=== PATIENT | female | born 1965 | race Caucasian/White ===

== ENCOUNTER 2016-06-05 12:49 | Outpatient (CLI) | payer BC | END 2016-06-05 12:50 | disposition home or self-care (01) | DX: E03.9 Hypothyroidism, unspecified (principal) ==

== ENCOUNTER 2017-05-20 08:59 | Outpatient (CLI) | payer BC | END 2017-05-20 09:00 | disposition home or self-care (01) | LOC: LAB.F 08:59 | PROVIDERS: ATTEND Nurse Practitioner Family | DX: E03.9 Hypothyroidism, unspecified (principal); Z13.6 Encounter for screening for cardiovascular disorders | CPT/HCPCS: 36415; 84443 ==

== ENCOUNTER 2018-02-18 09:23 | Outpatient (CLI) | payer BC ==
--- NOTE | 2018-02-21 09:20 | Mammography Report ---
Reason: Annual Screening Procedure Date: 02/18/2018 Accession Number: [id number] / [id number] Procedure: [facility] - Screening Mammo Dig Bilat CPT Code: FULL RESULT: EXAM: Screening Mammo Dig Bilat DATE: 02/18/2018 9:53 AM CLINICAL HISTORY: Screening encounter. History of late childbearing. TECHNIQUE: Bilateral CC, laterally exaggerated CC, MLO views were obtained. COMPARISON: 03/15/2015 and 03/08/2013. FINDINGS: The breasts demonstrate heterogeneously dense fibroglandular parenchyma bilaterally. There are coarse typically benign left breast calcifications. No suspicious masses, clustered microcalcifications, or regions of architectural distortion are identified. IMPRESSION: Benign findings RECOMMENDATION: Routine annual screening unless otherwise clinically indicated. BIRADS CATEGORY 2: Benign findings STANDARD QUALIFYING STATEMENTS: 1. This examination was not reviewed with the aid of Computer-Aided Detection (CAD). 2. A negative or benign imaging report should not preclude biopsy if clinically suspicious findings are present. 3. Dense breasts may obscure an underlying neoplasm. 4. This examination was reviewed without the aid of 3D breast imaging (tomosynthesis).
== END 2018-02-18 09:24 | disposition home or self-care (01) ==
LOC: DI 09:23
PROVIDERS: ATTEND Nurse Practitioner Family
DX: Z12.31 Encounter for screening mammogram for malignant neoplasm of breast (principal)
CPT/HCPCS: 77067

== ENCOUNTER 2018-05-23 09:59 | Emergency (ER) | payer BC, OTHER ==
[2018-05-23 10:19] VITALS: BP 124/81
--- NOTE | 2018-05-23 11:22 | XRAY Report ---
Reason: pain. Procedure Date: 05/23/2018 Accession Number: [id number] / [id number] Procedure: XR - Clavicle LT CPT Code: FULL RESULT: EXAM: LEFT CLAVICLE RADIOGRAPHY EXAM DATE: 05/23/2018 11:05 AM. CLINICAL HISTORY: Left sternoclavicular pain. COMPARISON: None. TECHNIQUE: 2 views. FINDINGS: Bones: Normal bone mineralization. No fracture or bone lesion. Joints: The acromioclavicular and sternoclavicular joints are normal. No subluxation. Soft Tissues: Normal. No soft tissue swelling. IMPRESSION: Normal left clavicle radiography. [facility]
--- NOTE | 2018-05-23 12:05 | ED Physician Documentation ---
History of Present Illness - Stated complaint Stated Complaint: LEFT SHOULDER PAIN - Chief complaint Chief Complaint: Ext Problem - History obtained from History obtained from: Patient - Additonal information Additional information: Patient is a previously healthy, right-handed 53-year-old female presenting with several days of left shoulder and clavicle pain after accidentally injuring herself while moving boxes. Patient reports that she was extending her left arm when she felt some discomfort, but no pop or sounds. Patient states there is some mild swelling over the mid clavicle, but pain is truly only present when lifting the arm forward in front of her or lifting the arm up next to her. Patient denies any other restriction in range of motion, strength, or sensation change to the left upper extremity. Patient also denies any other injuries. No other improving or worsening factors noted to her symptoms. Review of Systems Musculoskeletal: reports: Extremity pain Neurologic: denies: Numbness PD PAST MEDICAL HISTORY - Past Medical History Past Medical History: No - Past Surgical History Past Surgical History: No - Allergies Allergies/Adverse Reactions: Allergies Allergy/AdvReac Type Severity Reaction Status Date / Time Penicillins Allergy Rash Verified 05/23/18 10:19 PD ED PE NORMAL - General General: Alert and oriented X 3, No acute distress, Well developed/nourished - HEENT HEENT: Atraumatic - Cardiac Cardiac: Strong equal pulses (Cap refill brisk) - Respiratory Respiratory: No respiratory distress - Derm Derm: Normal color, Warm and dry, No rash - Extremities Extremities: No deformity, No tenderness to palpate, Other (No significant tenderness with palpation of left clavicle, although mild swelling over mid left clavicle.No evidence of AC joint separation or shoulder dislocation noted. No other palpable tenderness to left upper extremity, but restriction in range of motion in lifting of arm up in front of body and next to body.) - Neuro Neuro: Alert and oriented X 3, No motor deficit, No sensory deficit - Psych Psych: Normal mood, Normal affect Results - Vitals Vitals: Vital Signs - 24 hr 05/23/18 10:17 Temperature 36.2 C L Heart Rate 65 Respiratory 14 Rate Blood Pressure 124/81 H O2 Saturation 100 Oxygen O2 Source Room air PD MEDICAL DECISION MAKING - ED course Complexity details: reviewed results, considered differential, d/w patient ED course: Most concerning for rotator cuff injury. X-ray obtained and did not find evidence of AC separation or fracture. Externally, exam is extremely benign except for restrictions in range of motion. Not find evidence to indicate trauma or other pathology to remainder of left upper extremity. No signs of DVT or infectious process present and given traumatic mechanism, would find this highly unlikely. Feel the patient is safe to discharge home with follow-up, as well as discussed supportive cares and strict return precautions. Patient voiced understanding and is comfortable with discharge plan. Departure - Departure Disposition: 01 Home, Self Care Clinical Impression: Muscle strain Rotator cuff injury Qualifiers: Encounter type: initial encounter Laterality: left Qualified Code(s): S46.002A - Unspecified injury of muscle(s) and tendon(s) of the rotator cuff of left shoulder, initial encounter Instructions: ED Torn Rotator Cuff Follow-Up: Leann Gutierrez MD [Provider Admit Priv/Credential] - Within 3 Days Comments: Recommend using left shoulder gently and applying ice for swelling, as well as using ibuprofen/Tylenol as needed for pain relief. Also recommend mild stretching, physical therapy, massage. May follow-up with primary care physician orthopedic surgery next 2-3 days. Return to ED sooner if expands worsening symptoms or other concerns.
== END 2018-05-23 12:28 | disposition home or self-care (01) ==
LOC: ED 09:59
DX: S46.912A Strain of unspecified muscle, fascia and tendon at shoulder and upper arm level, left arm, initial encounter (principal); S46.002A Unspecified injury of muscle(s) and tendon(s) of the rotator cuff of left shoulder, initial encounter; X50.9XXA Other and unspecified overexertion or strenuous movements or postures, initial encounter
CPT/HCPCS: 99283

== ENCOUNTER 2018-08-18 12:26 | Day surgery (SDC) | payer OTHER ==
[2018-08-18 12:53] LABS: HCG UR QUAL NEGATIVE
[2018-08-18] MEDS ORDERED: LACTATED RINGERS 1,000 ML IV ONE (14:42)
--- NOTE | 2018-08-18 14:47 | SURGERY HX AND PHYSICAL(T) ---
Surgical History & Physical - PMH/PSH/Social Hx Does the pt have a hx of MRSA?: No Eyes, Ears, Nose, Throat: None Cardiovascular: None Respiratory: None Skin: None Endocrine/Autoimmune: HyPOthyroidism Gastrointestinal: Hemorrhoids Urinary: None Musculoskeletal: None Psychiatric: None - Home Meds and Allergies Home Medications: Levothyroxine [Synthroid] 25 mcg PO QDAC 08/18/18 Allergies/Adverse Reactions: Allergies Allergy/AdvReac Type Severity Reaction Status Date / Time Penicillins Allergy Rash Verified 05/23/18 10:19 - Vital Signs Heart Rate: 65 Blood Pressure: 105/74 Temperature: 36.6 C Respiratory Rate: 16 O2 Saturation: 98 Weight (kg): 74.8 kg Height: 1.7 m - Patient Review Patient Review: Problems were reviewed with the patient during this visit. Medications were reviewed with the patient during this visit. Allergies were reviewed this patient during this visit. Pertinent Tests Reviewed: All pertitent test for this patient were reviewed. - Assessment & Plan Assessment and Plan: MEHUL Coreas initially sent this very pleasant 53-year-old female to our office on July 13, 2018 for the exact same reasons. At that time the patient described her bowel movements as regular normal and she describes them the same way today. She denied nausea, vomiting, constipation, diarrhea, melena, hematochezia, hematemesis, abdominal pain, unexplained weight loss, or change in the color, character, or character of her stool and she denies them again today. On July 13 the patient denied any previous colon evaluation including barium enema sigmoidoscopy or colonoscopy and again she denies it today. Nothing is changed since July 13 2 today. There have been no new diagnoses. She is not on any new medications nor has she stopped any medications. She has not been hospitalized. Current Allergies: PENICILLIN V POTASSIUM (Severe) Current Meds: AZITHROMYCIN 250 MG ORAL TABLET (AZITHROMYCIN) two tablets by mouth today, one daily for the next 4 days; Route: ORAL LEVOTHYROXINE SODIUM 150 MCG ORAL TABLET (LEVOTHYROXINE SODIUM) Take one tablet by mouth daily; Route: ORAL Past Medical History: Hypothyroid Allergies Past Surgical History: Unremarkable Family History Summary: Family History of Thyroid Disorder for Mother, living. Parkinson's disease - Entered On: 02/21/2016 Family History of Diabetes for Father - Entered On: 02/21/2016 Family History of Heart Disease for Father - Entered On: 02/21/2016 Family History of High Cholesterol for Father - Entered On: 02/21/2016 Family History of Other Cancer for Father - Entered On: 02/21/2016 Family History of Stroke/CVA for Father - Entered On: 02/21/2016 Family History of a father for Father - Entered On: 02/21/2016 Social History Summary: Previous Social History: Alcohol Use - yes Drug Use - no HIV/High Risk - no Caffeine: yes Risk Factors: Smoked Tobacco Use: Never smoker Smokeless Tobacco Use: Never HIV High Risk Behavior: no Caffeine Use: 3 drinks per day Alcohol Use: yes Type: wine Drinks per day: <1 Drug Use: no Review of Systems CONSTITUTIONAL: No weight loss, fever, chills, weakness or fatigue. HEENT: Eyes: No visual loss, blurred vision, double vision or yellow sclerae. Ears, Nose, Throat: No hearing loss, sneezing, congestion, runny nose or sore throat. SKIN: No rash or itching. CARDIOVASCULAR: No chest pain, chest pressure or chest discomfort. No palpitations or edema. RESPIRATORY: No shortness of breath, cough or sputum. GASTROINTESTINAL: No anorexia, nausea, vomiting or diarrhea. No abdominal pain or blood. GENITOURINARY: No dysuria. Not . NEUROLOGICAL: No headache, dizziness, syncope, paralysis, ataxia, numbness or tingling in the extremities. No change in bowel or bladder control. MUSCULOSKELETAL: No muscle, back pain, joint pain or stiffness. HEMATOLOGIC: No anemia, bleeding or bruising. LYMPHATICS: No enlarged nodes. No history of splenectomy. PSYCHIATRIC: No history of depression or anxiety. ENDOCRINOLOGIC: No reports of sweating, cold or heat intolerance. No polyuria or polydipsia. ALLERGIES: No history of asthma, hives, eczema or rhinitis. Vital Signs: See nurse's notes. Physical Exam General: 53 year old female evaluated in room [facility] at [facility] hospice care [facility], appears slightly younger than stated age, well developed, well nourished HEENT: Normocephalic, atraumatic, extraocular movement intact, mucous membranes pink and moist, sclera anicteric and not injected Neck: Supple without pain on palpation, mass or bruit Cardiac: Regular rate and rhythm without rub, gallop, or murmur Chest: Clear to auscultation bilaterally Abdomen: Soft, nontender, normoactive bowel sounds, no hepatomegaly, no splenomegaly Genitourinary: Deferred Rectal: Deferred until colonoscopy Extremities: No gross neurovascular problem, no clubbing, cyanosis or edema Gait: Not evaluated Psychiatric: Alert and oriented to person place and time, asks and answers questions appropriately, mood and affect appropriate Impression & Recommendations: Problem # 1: Colon cancer screening Colonoscopy with possible biopsies and/or polypectomies. Indications, procedure, alternatives (such as barium enema, Cologuard and even no procedure at all) and risks including but not limited to perforation requiring operative repair, bleeding with its risks, and were fully explained to her. In the office, I lori diagrams explaining the colonic anatomy and the proposed procedure and handed it to her. In the office, conscious sedation was discussed at length with her as were its risks including but not limited to loss of airway, aspiration, respiratory depression, and not enough relief of pain and anxiety and she indicated that she wished to have conscious sedation for her procedure. In the office, I explained that MAC anesthesia is associated with a higher incidence of colon perforation. Review of her history does not reveal any significant systemic disease that would contraindicate use of conscious sedation or MAC anesthesia. All questions were fully answered. Verbal and written consent was obtained. The patient in preparation for her colonoscopy has been n.p.o. and her colon has been mechanically prepped. 20 minutes of [id number] time spent with the patient the majority of which was spent in discussion and in the generation of this document [employer] disclaimer: This document was created in part using voice recognition technology. Because of the inherent limitations of the system ([employer] user manual states that the licensee understands that speech recognition is a statistical process and that recognition errors are inherent in the process), occasional same sounding word substitutions and grammatical errors do occur and persist despite proofreading. Please read this document for context.
[2018-08-18] MEDS ORDERED: fentaNYL 250 MCG/5 ML VIAL IVP ONE (14:58)
[2018-08-18] MEDS ORDERED: MIDAZOLAM 2 MG/2 ML VIAL IVP ONE (14:58)
[2018-08-18 15:57] VITALS: BP 114/64
== END 2018-08-18 12:27 | disposition home or self-care (01) ==
LOC: SDS 12:26
PROVIDERS: ATTEND Surgery
PROC: 0DJD8ZZ Inspection of Lower Intestinal Tract, Via Natural or Artificial Opening Endoscopic (ICD-10-PCS; principal; 2018-08-18 13:45)
DX: Z12.11 Encounter for screening for malignant neoplasm of colon (principal); K64.8 Other hemorrhoids; E03.9 Hypothyroidism, unspecified
CPT/HCPCS: 45378; 81025; J3010; J7120

== ENCOUNTER 2019-04-27 12:57 | Outpatient (CLI) | payer OTHER ==
--- NOTE | 2019-04-28 08:28 | Mammography Report ---
Reason: ROUTINE MAMMO Procedure Date: 04/27/2019 Accession Number: [id number] / [id number] Procedure: [facility]GS - Screening Mammo Dig Bilat CPT Code: Final Report FULL RESULT: EXAM: Screening Mammo Dig Bilat DATE: 04/27/2019 1:19 PM CLINICAL HISTORY: Screening encounter. TECHNIQUE: (B) - Bilateral CC, laterally exaggerated CC, MLO views were obtained. COMPARISON: 02/18/2018 through 03/08/2013. PARENCHYMAL PATTERN: (D) - The breast(s) demonstrate(s) heterogeneously dense fibroglandular parenchyma. FINDINGS: There are no suspicious masses, calcifications, or areas of distortion. IMPRESSION: Negative examination. BI-RADS category 1. RECOMMENDATION: (ANNUAL) - Recommend routine annual screening mammography. BI-RADS CATEGORY: (1) - Negative. STANDARD QUALIFYING STATEMENTS: 1. This examination was reviewed with the aid of Computer-Aided Detection (CAD). 2. A negative or benign imaging report should not preclude biopsy if clinically suspicious findings are present. 3. Dense breasts may obscure an underlying neoplasm. 4. This examination was reviewed without the aid of 3D breast imaging (tomosynthesis).
== END 2019-04-27 12:58 | disposition home or self-care (01) ==
LOC: DI.S 12:57
DX: Z12.31 Encounter for screening mammogram for malignant neoplasm of breast (principal)
CPT/HCPCS: 77067

== ENCOUNTER 2019-05-05 08:27 | Outpatient (CLI) | payer OTHER ==
[2019-05-05 11:18] LABS: BASOPHILS # (AUTO) 0.1 10^3/uL (0.0-0.1); BASOPHILS % (AUTO) 0.9 %; EOSINOPHILS # (AUTO) 0.2 10^3/uL (0.0-0.7); EOSINOPHILS % (AUTO) 2.5 %; HGB - HEMOGLOBIN 13.2 g/dL (12.0-16.0); LYMPHOCYTES # (AUTO) 1.4 10^3/uL (1.5-3.5); LYMPHOCYTES % (AUTO) 22.5 %; MEAN CORPUSCULAR HEMOGLOBIN 28.9 pg (27.0-31.0); MEAN CORPUSCULAR HGB CONC 32.3 g/dL (32.0-36.0); MEAN CORPUSCULAR VOLUME 89.5 fL (81.0-99.0); MEAN PLATELET VOLUME 10.3 fL (7.9-10.8); MONOCYTES # (AUTO) 0.8 10^3/uL (0.0-1.0); MONOCYTES % (AUTO) 12.2 %; NEUTROPHILS % (AUTO) 61.7 %; PLT - PLATELET COUNT 273 10^3/uL (130-450); RED BLOOD COUNT 4.57 10^6/uL (4.20-5.40); RED CELL DISTRIBUTION WIDTH 13.7 % (12.0-15.0); WHITE BLOOD COUNT 6.4 x10^3/uL (4.8-10.8)
[2019-05-05 11:36] LABS: ALBUMIN 3.9 g/dL (3.2-5.5); ALBUMIN/GLOBULIN RATIO 1.4 (1.0-2.2); ALKALINE PHOSPHATASE 52 IU/L (42-121); ALT ALANINE AMINOTRANSFERASE 40 IU/L (10-60); AST ASPARTATE AMINOTRANSFERASE 27 IU/L (10-42); BILIRUBIN,TOTAL 0.6 mg/dL (0.2-1.0); BUN - BLOOD UREA NITROGEN 11 mg/dL (6-20); CALCIUM 8.5 mg/dL (8.5-10.3); CARBON DIOXIDE - CO2 26 mmol/L (21-32); CHLORIDE 102 mmol/L (101-111); CHOL/HDL RATIO 2.4 (<4.4); CHOLESTEROL 192 mg/dL; CREATININE 0.6 mg/dL (0.4-1.0); GFR - MDRD 105 (>89); GLUCOSE 95 mg/dL (70-100); HDL CHOLESTEROL 80 mg/dL; LDL CHOLESTEROL,CALCULATED 103 mg/dL; LDL/HDL RATIO 1.3 (<4.4); SODIUM 135 mmol/L (135-145); TOTAL PROTEIN 6.7 g/dL (6.7-8.2); VLDL CHOLESTEROL 9 mg/dL
== END 2019-05-05 08:28 | disposition home or self-care (01) ==
LOC: LAB.S 08:27
PROVIDERS: ATTEND Registered Nurse
DX: E78.5 Hyperlipidemia, unspecified (principal); Z13.0 Encounter for screening for diseases of the blood and blood-forming organs and certain disorders involving the immune mechanism; E03.9 Hypothyroidism, unspecified
CPT/HCPCS: 36415; 80053; 80061; 83721; 84443; 85025

== ENCOUNTER 2022-04-03 07:24 | Outpatient (CLI) | payer OTHER ==
[2022-04-03 14:25] LABS: BASOPHILS # (AUTO) 0.1 10^3/uL (0.0-0.1); BASOPHILS % (AUTO) 1.1 %; EOSINOPHILS # (AUTO) 0.3 10^3/uL (0.0-0.7); EOSINOPHILS % (AUTO) 4.6 %; HCT - HEMATOCRIT 45.8 % (37.0-47.0); HGB - HEMOGLOBIN 14.2 g/dL (12.0-16.0); LYMPHOCYTES # (AUTO) 1.7 10^3/uL (1.5-3.5); LYMPHOCYTES % (AUTO) 29.3 %; MEAN CORPUSCULAR HEMOGLOBIN 27.7 pg (27.0-31.0); MEAN CORPUSCULAR VOLUME 89.3 fL (81.0-99.0); MEAN PLATELET VOLUME 10.2 fL (7.9-10.8); MONOCYTES # (AUTO) 0.7 10^3/uL (0.0-1.0); MONOCYTES % (AUTO) 12.2 %; NEUTROPHILS % (AUTO) 52.6 %; PLT - PLATELET COUNT 289 10^3/uL (130-450); RED BLOOD COUNT 5.13 10^6/uL (4.20-5.40); RED CELL DISTRIBUTION WIDTH 13.7 % (12.0-15.0); WHITE BLOOD COUNT 5.7 x10^3/uL (4.8-10.8)
[2022-04-03 15:03] LABS: ESTIMATED AVERAGE GLUCOSE 126 mg/dL (70-100)
[2022-04-03 15:53] LABS: ALBUMIN 4.2 g/dL (3.2-5.5); ALBUMIN/GLOBULIN RATIO 1.5 (1.0-2.2); ALKALINE PHOSPHATASE 68 IU/L (42-121); ALT ALANINE AMINOTRANSFERASE 38 IU/L (10-60); AST ASPARTATE AMINOTRANSFERASE 26 IU/L (10-42); BILIRUBIN,TOTAL 1.1 mg/dL (0.2-1.0); BUN - BLOOD UREA NITROGEN 16 mg/dL (6-20); CALCIUM 9.4 mg/dL (8.5-10.3); CARBON DIOXIDE - CO2 25 mmol/L (21-32); CHLORIDE 102 mmol/L (101-111); CHOL/HDL RATIO 2.4 (<4.4); CHOLESTEROL 221 mg/dL; CREATININE 0.6 mg/dL (0.4-1.0); GFR - MDRD 104 (>89); GLUCOSE 110 mg/dL (70-100); HDL CHOLESTEROL 91 mg/dL; LDL CHOLESTEROL,CALCULATED 121 mg/dL; LDL/HDL RATIO 1.3 (<4.4); POTASSIUM 4.2 mmol/L (3.5-5.0); SODIUM 138 mmol/L (135-145); TRIGLYCERIDES 45 mg/dL; VLDL CHOLESTEROL 9 mg/dL
[2022-04-03 15:59] LABS: FREE T3 2.94 pg/mL (2.5-3.9)
[2022-04-03 16:00] LABS: THYROID STIMULATING HORMONE 4.28 uIU/mL (0.34-5.60)
[2022-04-03 16:04] LABS: FREE T4 (FREE THYROXINE) 0.88 ng/dL (0.58-1.64)
[2022-04-03 16:26] LABS: FOLLICLE STIMULATING HORMONE 40.84 mIU/mL
[2022-04-03 16:27] LABS: LUTEINIZING HORMONE 26.62 mIU/mL
[2022-04-04 08:09] LABS: ESTRADIOL <5.0 pg/mL (.); PROGESTERONE 0.4 ng/mL (.)
[2022-04-04 09:09] LABS: HBsAG SCREEN Negative (Negative); HCV AB <0.1 s/co ratio (0.0-0.9); HEPATITIS B CORE IGM AB Negative (Negative)
== END 2022-04-03 07:25 | disposition home or self-care (01) ==
LOC: LAB.S 07:24
DX: E03.9 Hypothyroidism, unspecified (principal); N95.1 Menopausal and female climacteric states
CPT/HCPCS: 36415; 80053; 80061; 82670; 83001; 83002; 83036; 83721; 84144; 84439; 84443; 84481; 85025; 86705; 86709; 86803; 87340

== ENCOUNTER 2022-07-15 07:36 | Outpatient (CLI) | payer OTHER ==
[2022-07-15 15:27] LABS: THYROID STIMULATING HORMONE < 0.08 uIU/mL (0.34-5.60)
[2022-07-15 15:29] LABS: FREE T3 3.12 pg/mL (2.5-3.9); FREE T4 (FREE THYROXINE) 1.31 ng/dL (0.58-1.64)
[2022-07-15 20:06] LABS: ESTIMATED AVERAGE GLUCOSE 117 mg/dL (70-100); HEMOGLOBIN A1c% 5.7 % (4.27-6.07)
== END 2022-07-15 07:37 | disposition home or self-care (01) ==
LOC: LAB.S 07:36
PROVIDERS: ATTEND Naturopath
DX: E03.9 Hypothyroidism, unspecified (principal); R73.03 Prediabetes
CPT/HCPCS: 36415; 83036; 84439; 84443; 84481

== ENCOUNTER 2022-10-16 09:04 | Outpatient (CLI) | payer OTHER ==
[2022-10-16 15:12] LABS: ESTIMATED AVERAGE GLUCOSE 131 mg/dL (70-100); HEMOGLOBIN A1c% 6.2 % (4.27-6.07)
[2022-10-16 15:40] LABS: THYROID STIMULATING HORMONE 0.59 uIU/mL (0.34-5.60)
== END 2022-10-16 09:05 | disposition home or self-care (01) ==
LOC: LAB.S 09:04
PROVIDERS: ATTEND Naturopath
DX: E03.9 Hypothyroidism, unspecified (principal); R73.03 Prediabetes
CPT/HCPCS: 36415; 83036; 84439; 84443; 84481

== ENCOUNTER 2023-03-09 14:06 | Outpatient (CLI) | payer OTHER ==
[2023-03-09 20:47] LABS: THYROID STIMULATING HORMONE 0.1 uIU/mL (0.34-5.60)
[2023-03-09 21:36] LABS: ESTIMATED AVERAGE GLUCOSE 126 mg/dL (70-100)
--- NOTE | 2023-03-10 12:57 | Mammography Report ---
BILATERAL DIGITAL SCREENING MAMMOGRAM 3D/2D WITH EXAGGERATED CC: 03/09/2023 CLINICAL: Routine screening. Comparison is made to exams dated: 04/27/2019 mammogram, 02/18/2018 mammogram, and 03/15/2015 mammogram - [facility]. Both breasts are heterogeneously dense, which may obscure small masses (category c / 51-75% glandular tissue). No significant masses, calcifications, or other findings are seen in either breast. There has been no significant interval change. IMPRESSION: NEGATIVE There is no mammographic evidence of malignancy. A 1 year screening mammogram is recommended. Based on the Tyrer Cuzick model (a risk assessment model) the patients lifetime risk is 12.6% and her 10 year risk is 4.1%. According to the ACR, ACS, and NCCN guidelines, an annual breast MRI exam tejas g with mammogram is recommended if the patients lifetime risk is 20% or greater. This exam was interpreted at Station ID: [id number]. NOTE: For mammograms, a report in lay terms will be sent to the patient. Approximately 15% of breast malignancies will not be visualized mammographically. In the management of a palpable breast mass, a negative mammogram must not discourage biopsy of a clinically suspicious lesion. Electronically Signed By: Johanna minaya/jannette:03/10/2023 09:29:15 letter sent: No_Letter ACR BI-RADS Category 1: Negative [id number] PARENCHYMAL PATTERN: (D) - The breast(s) demonstrate(s) heterogeneously dense fibroglandular rebecca meier. BI-RADS CATEGORY: (1) - 1 Mammogram [id number] 1 year screening LATERALITY: (B)
== END 2023-03-09 14:07 | disposition home or self-care (01) ==
LOC: DI.S 14:06
PROVIDERS: ATTEND Naturopath
DX: Z12.31 Encounter for screening mammogram for malignant neoplasm of breast (principal); R92.333 Mammographic heterogeneous density, bilateral breasts; E03.8 Other specified hypothyroidism; R73.03 Prediabetes
CPT/HCPCS: 36415; 83036; 84439; 84443; 84481